=== PATIENT | male | born 1990 | race Asian ===

== ENCOUNTER 2017-07-19 05:43 | Emergency (ER) | payer SELFPAY ==
[2017-07-19 07:31] VITALS: BP 141/78
== END 2017-07-19 07:31 | disposition home or self-care (01) ==
LOC: ED 05:43
DX: B34.9 Viral infection, unspecified (principal); R03.0 Elevated blood-pressure reading, without diagnosis of hypertension
CPT/HCPCS: J1885; J2405; J7030